=== PATIENT | female | born 1985 | race Caucasian/White ===

== ENCOUNTER → 2018-11-17 | Outpatient (CLI) | payer OTHER ==
--- NOTE | 2018-11-17 16:08 | US ---
EXAMINATION TYPE: US abdomen complete DATE OF EXAM: 11/17/2018 COMPARISON: NONE CLINICAL HISTORY: R10.11 rt upper quad abd pain; intermittent RUQ pain after meals with nausea EXAM MEASUREMENTS: Liver Length: 12.7 cm Gallbladder Wall: 0.1 cm CBD: 0.3 cm Spleen: 10.0 cm Right Kidney: 10.4 x 4.8 x 3.2 x cm Left Kidney: 10.0 x 5.0 x 4.3 cm Pancreas: wnl Liver: wnl Gallbladder: wnl Evidence for sonographic Richard's sign: no CBD: wnl Spleen: wnl Right Kidney: wnl Left Kidney: wnl Upper IVC: wnl Abd Aorta: wnl IMPRESSION: 1. Normal abdomen ultrasound
== END | disposition home or self-care (01) ==
LOC: RADUSWWP 06:59
PROVIDERS: ATTEND Internal Medicine
DX: R10.11 Right upper quadrant pain (principal)
CPT/HCPCS: 76700

== ENCOUNTER → 2018-12-01 | Outpatient (CLI) | payer OTHER ==
--- NOTE | 2018-12-01 15:35 | NM ---
Nuclear medicine hepatobiliary scan. HISTORY: Pain. DOSAGE: The patient received 8 fluid oz. of Ensure Plus and 4.8 mCi of Technetium 99m Choletec. FINDINGS: There is normal hepatic extraction. The gallbladder is seen by 20 minutes. There is bilia ry to bowel is not seen at 60 minutes.. Ejection fraction is 58%. IMPRESSION: 1. Normal filling of the gallbladder with normal ejection fraction. There is delayed biliary to bowel transit which is nonspecific finding and can be seen as a normal finding in approximately one quarte r of the population.
== END | disposition home or self-care (01) ==
LOC: RADNMMAIN 12:38
PROVIDERS: ATTEND Internal Medicine
DX: R93.2 Abnormal findings on diagnostic imaging of liver and biliary tract (principal); R10.11 Right upper quadrant pain
CPT/HCPCS: 78226; A9537

== ENCOUNTER → 2023-03-16 | Outpatient (CLI) | payer OTHER ==
[2023-03-16 08:45] VITALS: BP 123/86; PULSE 92; RESP 16; TEMP 98
--- NOTE | 2023-03-16 09:10 | P.HPOB ---
History of Present Illness H&P Date: 03/16/23 Chief Complaint: The patient is here for her routine gynecologic exam and ma mmogram. This is a 38-year-old with an LMP of 03/04/2023. The patient is here to establish with this office. Her is status post vasectomy. It has been about 1-1/2 years since her last pelvic exam. Menstrual periods are regular every month lasting about 5 days with the second day being a bit heavier and with more cramping and body aching. The cramps are relatively new for her and she does take [id number]-[id number] ibuprofen with some relief. On the heavy days, she typically changes her protection about every 2 hours. She is otherwise without gynecologic complaints. Review of Systems The patient's weight has been stable over the last year. She denies respiratory, cardiac, or G.I. problems. 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 History of Any Multi-Drug Resistant Organisms: None Reported Past Surgical History: Appendectomy Past Anesthesia/Blood Transfusion Reactions: No Reported Reaction Past Psychological History: Anxiety (Not requiring medication.) Smoking Status: Never smoker Past Alcohol Use History: Occasional (About 2 drinks per month.) Past Drug Use History: None Reported Additional History: She has been since 2007. 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 - Past Family History Mother Family Medical History: Hyperlipidemia, Liver Disease Additional Family Medical History / Comment(s): Fatty liver and osteoporosis. No known family history of cancer of the breasts, uterus, ovaries, or colon. Father Family Medical History: Coronary Artery Disease (CAD) Medications and Allergies Home Medications Medication Instructions Recorded Confirmed Type Iron 18 mg PO DAILY 03/16/23 03/16/23 History Multivitamin [Multivitamins Adult 1 tab PO DAILY 03/16/23 03/16/23 History Gummies] Allergies Allergy/AdvReac Type Severity Reaction Status Date / Time No Known Allergies Allergy Unverified 03/16/23 08:26 Exam Vital Signs Temp Pulse Resp BP Pulse Ox 03/16/23 08:27 98 F 92 16 123/86 100 Intake and Output 03/15/23 03/16/23 03/16/23 22:59 06:59 14:59 Other: Weight 64.41 kg Height 5 feet 5 inches, weight 142 pounds, BMI 23.6. This is a well-developed well-nourished white female who is alert and oriented times 3 in no acute distress. HEENT: Within normal limits. NECK: Supple without mass or thyromegaly. CHEST AND LUNGS: Clear to auscultation. HEART: Regular rhythm with mild tachycardia which she attributes to her anxiety. BREASTS: Are without mass or discharge. AXILLARY EXAM: Negative for adenopathy. BACK: Negative for CVA tenderness. ABDOMEN: Soft, nontender, without palpable masses. PELVIC EXAM: Normal external genitalia. Cervix and vagina appear normal. There is no unusual discharge. There is no evidence of prolapse. The uterus is midposition, nongravid size and nontender. There are no palpable adnexal masses or tenderness. RECTAL EXAM: negative for mass or tenderness and is negative for occult blood. EXTREMITIES: Nontender. IMPRESSION: 1. 38-year-old female whose is status post vasectomy, with normal gynecologic exam. 2. Mild dysmenorrhea improved with [id number] ibuprofen. PLAN: 1. Pap smear cotest was performed. 2. Self breast awareness was discussed with the patient. We have also discussed symptoms associated with inflammatory breast cancer. 3. Screening mammogram will be done today. This will be a baseline study. I recommended that this be done at least every 1-2 years. 4. Osteoporosis prevention was discussed. I have stressed the importance of adequate calcium, vitamin D and regular exercise. Recommended amounts of calcium and vitamin D were also discussed. 5. We have discussed options for her mild dysmenorrhea. At this time continuing [id number] NSAID type medications such as ibuprofen or Aleve as directed is probably the best option. We have discussed other options including other medications if her heavy flow becomes a problem, as well as endometrial ablation. 6. She was advised to return in one year for her annual well woman exam.
--- NOTE | 2023-03-17 16:59 | MM ---
Reason for Exam: Screening (asymptomatic). Baseline mammogram. Patient History: Menarche at age 11. First Full-Term at age 23. Premenopausal. Last menstrual period: 03/04/2023 Risk Values: Lorena 5 year model risk: 0.6%. NCI Lifetime model risk: 11.1%. Prior Study Comparison: Patient's first Mammogram. Tissue Density: The breast tissue is heterogeneously dense. This may lower the sensitivity of mammography. Findings: Analyzed By CAD. No significant mass, suspicious microcalcification, or other discrete abnormality is seen. Overall Assessment: Negative, BI-RAD 1 Management: Screening Mammogram of both breasts in 1 year. . Patient should continue monthly self-breast exams. A clinical breast exam by your physician is recommended on an annual basis. This exam should not preclude additional follow-up of suspicious palpable abnormalities. Note on Lorena scores and lifetime risk: 1. A Lorena score greater than 3% is considered moderate risk. If this is the case, consider specialist referral to assess eligibility for a risk reducing agent. 2. If overall lifetime risk for the development of breast cancer is 20% or higher, the patient may qualify for future screening with alternating mammogram and breast MRI. Electronically signed and approved by: Breann Garcia M.D. Radiologist
== END ==
LOC: WWCWWP 08:21
PROVIDERS: ATTEND Obstetrics & Gynecology
DX: Z12.31 Encounter for screening mammogram for malignant neoplasm of breast (principal); N94.6 Dysmenorrhea, unspecified; F41.9 Anxiety disorder, unspecified
CPT/HCPCS: 77063; 77067